=== PATIENT | female | born 1995 | race Caucasian/White ===

== ENCOUNTER 2016-11-26 11:35 | Emergency (ER) | payer OTHER ==
[~2016-11-26] VITALS: Ht 160 cm; Wt 75.0 kg
[~2016-11-26 11:35] MED LIST: CEPH-368 PO; HYDR-3240 PO; PROM50SU6 PO
[2016-11-26 11:40] VITALS: BP 152/95
[2016-11-26] MEDS ORDERED: SUMA25TA3 PO (11:47)
[2016-11-26] MEDS ORDERED: OXYcodone/APAP 5/325MG TABLET ONE (11:52)
[2016-11-26] MEDS ORDERED: ACETAMINOPHEN 500 MG TABLET ONE (11:57)
[2016-11-26] MEDS ORDERED: ACETAMINOPHEN 500 MG TABLET PO ONE (12:00)
[2016-11-26] MEDS ORDERED: OXYcodone/APAP 5/325MG TABLET PO ONE (12:00)
[2016-11-27] MEDS ORDERED: TRAM-28 PO (11:06)
== END 2016-11-26 12:27 | disposition home or self-care (01) ==
LOC: ED 11:43
DX: S00.03XA Contusion of scalp, initial encounter (principal); Y00.XXXA Assault by blunt object, initial encounter; Y92.89 Other specified places as the place of occurrence of the external cause; Y93.89 Activity, other specified; Y99.8 Other external cause status
CPT/HCPCS: 99283

== ENCOUNTER 2016-11-27 10:18 | Emergency (ER) | payer OTHER ==
[~2016-11-27] VITALS: Ht 160 cm; Wt 74.0 kg
[~2016-11-27 10:18] MED LIST changes: +SUMA25TA3 PO
[2016-11-27 10:41] VITALS: BP 117/61
[2016-11-27] MEDS ORDERED: TRAM-28 PO (11:06)
== END 2016-11-27 11:58 | disposition home or self-care (01) ==
LOC: ED 11:52
DX: S09.90XA Unspecified injury of head, initial encounter (principal); Y09 Assault by unspecified means; Y93.89 Activity, other specified; Y92.89 Other specified places as the place of occurrence of the external cause; Y99.9 Unspecified external cause status
CPT/HCPCS: 99283

== ENCOUNTER 2017-06-30 21:26 | Emergency (ER) | payer OTHER ==
[~2017-06-30] VITALS: Ht 160 cm; Wt 80.1 kg
[~2017-06-30 21:26] MED LIST changes: +None at this Time; +ONDA4TAB7 PO; +TRAM-47 PO
[2017-06-30 21:28] VITALS: BP 133/84
== END 2017-06-30 22:11 | disposition home or self-care (01) ==
LOC: ED 22:00
DX: G89.18 Other acute postprocedural pain (principal); L25.9 Unspecified contact dermatitis, unspecified cause; R11.0 Nausea
CPT/HCPCS: 99283

== ENCOUNTER 2017-07-27 12:47 | Emergency (ER) | payer OTHER ==
[~2017-07-27] VITALS: Ht 160 cm; Wt 80.0 kg
[2017-07-27 12:50] VITALS: BP 132/83
[2017-07-27] MEDS ORDERED: KETOROLAC 30 MG/1 ML ONE (13:22)
[2017-07-27] MEDS ORDERED: METHOCARBAMOL 750 MG TABLET ONE (13:22)
[2017-07-27] MEDS ORDERED: METHOCARBAMOL 750 MG TABLET PO ONE (13:30)
[2017-07-27] MEDS ORDERED: KETOROLAC 30 MG/1 ML IM ONE (13:30)
== END 2017-07-27 14:10 | disposition home or self-care (01) ==
LOC: ED 14:00
DX: S16.1XXA Strain of muscle, fascia and tendon at neck level, initial encounter (principal); V79.40XA Driver of bus injured in collision with unspecified motor vehicles in traffic accident, initial encounter; Y93.89 Activity, other specified; Y99.8 Other external cause status; Y92.89 Other specified places as the place of occurrence of the external cause
CPT/HCPCS: 72050; 96372; 99284; J1885